=== PATIENT | male | born 1950 | race Caucasian/White ===

== ENCOUNTER 2022-03-27 11:47 | Outpatient (CLI) | payer MEDICARE | END 2022-03-27 11:48 | disposition home or self-care (01) | LOC: CSHLAB 11:47 | PROVIDERS: ATTEND Surgery | DX: Z01.818 Encounter for other preprocedural examination (principal); Z20.822 Contact with and (suspected) exposure to COVID-19 | CPT/HCPCS: 87811; 93005; 93010 ==

== ENCOUNTER 2022-04-01 05:50 | Day surgery (SDC) | payer MEDICARE ==
[2022-03-28 13:23] VITALS: BMI 26.1
[2022-04-01] MEDS ORDERED: EPINEPHrine 1 MG/ML AMP ONE (06:37)
[2022-04-01] MEDS ORDERED: Bupivacaine PF 0.5% 30 ML VIAL ONE (06:38)
[2022-04-01] MEDS ORDERED: Midazolam HCl 2 mg/2 ml Vial ONE (06:50)
[2022-04-01] MEDS ORDERED: CEFAZOLIN 2 GM VIAL ONE (06:50)
[2022-04-01] MEDS ORDERED: PROPOFOL 20 ML ONE (06:50)
[2022-04-01] MEDS ORDERED: Fentanyl 100 MCG/2 ML VIAL ONE (06:50)
[2022-04-01] MEDS ORDERED: Ondansetron PF 4 MG/2 ML Vial ONE (06:55)
[2022-04-01] MEDS ORDERED: Dexamethasone 20 MG/5 ML VIAL ONE (06:55)
[2022-04-01] MEDS ORDERED: Lidocaine 1% PF 5 ML VIAL ONE (06:55)
[2022-04-01] MEDS ORDERED: Acetaminophen 325 MG TAB PO PRN (07:55)
[2022-04-01] MEDS ORDERED: HYDROcodone/Acetaminophen 5/325 mg Tablet PO PRN (07:55)
== END 2022-04-01 08:30 | disposition home or self-care (01) ==
LOC: CSHSDC 05:50
PROVIDERS: ATTEND Surgery
PROC: 02HV33Z Insertion of Infusion Device into Superior Vena Cava, Percutaneous Approach (ICD-10-PCS; principal; 2022-04-01)
PROC: B518ZZA Fluoroscopy of Superior Vena Cava, Guidance (ICD-10-PCS; 2022-04-01)
DX: C83.39 Diffuse large B-cell lymphoma, extranodal and solid organ sites (principal); I10 Essential (primary) hypertension; I48.0 Paroxysmal atrial fibrillation; Z86.73 Personal history of transient ischemic attack (TIA), and cerebral infarction without residual deficits; Z79.82 Long term (current) use of aspirin; Z79.01 Long term (current) use of anticoagulants; Z79.899 Other long term (current) drug therapy; Z87.891 Personal history of nicotine dependence; Z20.822 Contact with and (suspected) exposure to COVID-19; Z98.84 Bariatric surgery status
CPT/HCPCS: 76000; C1788; J0171; J0690; J1100; J1642; J2250; J2405; J2704; J3010; S0020

== ENCOUNTER 2022-05-29 15:05 | Outpatient (CLI) | payer MEDICARE | END 2022-05-29 15:06 | disposition home or self-care (01) | LOC: CSHRAD 15:05 | PROVIDERS: ATTEND Internal Medicine Hematology & Oncology | DX: M25.552 Pain in left hip (principal); M79.652 Pain in left thigh; M79.661 Pain in right lower leg; M25.561 Pain in right knee; M89.8X5 Other specified disorders of bone, thigh; M89.8X6 Other specified disorders of bone, lower leg; M16.12 Unilateral primary osteoarthritis, left hip; M19.071 Primary osteoarthritis, right ankle and foot ==

== ENCOUNTER 2022-08-12 12:56 | Outpatient (CLI) | payer MEDICARE | END 2022-08-12 12:57 | disposition home or self-care (01) | LOC: CSHULT 12:56 | PROVIDERS: ATTEND Orthopaedic Surgery | DX: M79.661 Pain in right lower leg (principal) ==